=== PATIENT | female | born 1955 | race Caucasian/White ===

== ENCOUNTER 2016-08-13 16:00 | Emergency (ER) | payer MEDICAID ==
[~2016-08-13] VITALS: Ht 162.6 cm; Wt 81.6 kg
[~2016-08-13 16:00] MED LIST: ASPI325T2 PO; CLON0.2T PO
[2016-08-13 16:19] LABS: BASOPHILS % (AUTO) 0.3 % (0.0-2.0); DIFF TOTAL % 100 %; EOSINOPHILS # (AUTO) 0.1 /CMM (0.0-0.7); EOSINOPHILS % (AUTO) 0.8 % (0.0-6.0); HEMATOCRIT 45 % (33-45); HEMOGLOBIN 15.3 g/dL (11.5-14.8); LYMPHOCYTES # (AUTO) 1.4 /CMM (0.8-4.8); LYMPHOCYTES % (AUTO) 15.1 % (20.0-44.0); MEAN CORPUSCULAR HEMOGLOBIN 30 PG (26.0-33.0); MEAN CORPUSCULAR HGB CONC 34 g/dl (31.0-36.0); MEAN CORPUSCULAR VOLUME 88 fL (82-100); MONOCYTES # (AUTO) 0.6 /CMM (0.1-1.30); MONOCYTES % (AUTO) 6.2 % (2.0-12.0); NEUTROPHILS # (AUTO) 7.3 /CMM (1.8-8.9); NEUTROPHILS % (AUTO) 77.6 % (43.0-81.0); PLATELET COUNT (AUTO) 320 /CMM (150-450); RED BLOOD CELL COUNT(AUTO) 5.17 MIL/uL (4.0-5.2); WHITE BLOOD COUNT (AUTO) 9.4 K/uL (4.3-11.0)
[2016-08-13] MEDS ORDERED: hydrALAZINE HCL IV 20 MG VIAL ONE ×2 (16:29→16:53)
[2016-08-13] MEDS ORDERED: hydrALAZINE HCL IV 20 MG VIAL IV ONE ×2 (16:30→17:00)
[2016-08-13 16:35] LABS: CREATININE 0.9 mg/dL (0.6-1.3)
[2016-08-13 16:40] LABS: INR 1.02 (0.87-1.13); PROTHROMBIN TIME 10.7 SECS (9.5-12.7)
[2016-08-13 17:54] VITALS: BP 129/68
== END 2016-08-13 17:55 | disposition home or self-care (01) ==
LOC: ER 16:05
DX: I10 Essential (primary) hypertension (principal); R79.1 Abnormal coagulation profile; Z79.82 Long term (current) use of aspirin
CPT/HCPCS: 36415; 80048; 85025; 85730; 96374; 99284; A4606; J0360 ×2; Z7610